=== PATIENT | female | born 1930 | race Caucasian/White ===

== ENCOUNTER 2021-06-04 10:17 | Emergency (ER) | payer MEDICARE ==
[~2021-06-04] VITALS: Ht 157.5 cm; Wt 63.5 kg
[~2021-06-04 10:17] MED LIST: AMLODIPINE BES2.5 MG PO; AMLODIPINE BESYL5 MG PO; CORDARONE200 MG PO; GLIMEPIRIDE2 MG PO; KCL20TCR PO; LISINOPRIL40 MG PO; MILK OF MA400 MG/5 M PO; MTP50T PO; NORVASC5 MG PO; POTASSIUM CHLO20 ME1 PO; PRAVASTATIN SOD80 MG PO; TOPROL XL25 MG PO; WARFARIN SODIUM5 MG PO
[2021-06-04] MEDS ORDERED: CEFUROXIME500 MG PO (11:41)
[2021-06-04] MEDS ORDERED: PHENAZOPYRIDIN200 MG PO (11:42)
== END 2021-06-04 12:00 | disposition home or self-care (01) ==
LOC: FSED 11:00 → ER 12:00
DX: I48.92 Unspecified atrial flutter (principal); E11.9 Type 2 diabetes mellitus without complications; I10 Essential (primary) hypertension; N39.0 Urinary tract infection, site not specified; E78.5 Hyperlipidemia, unspecified; Z95.0 Presence of cardiac pacemaker
CPT/HCPCS: 81003; 87086; 87186; 99282

== ENCOUNTER 2021-08-16 12:26 | Emergency (ER) | payer MEDICARE ==
[~2021-08-16] VITALS: Ht 157.5 cm; Wt 63.6 kg
[~2021-08-16 12:26] MED LIST changes: +CEFUROXIME500 MG PO; +PHENAZOPYRIDIN200 MG PO
[2021-08-16] MEDS ORDERED: DIOVAN HCT 1601 EACH (13:21)
[2021-08-16] MEDS ORDERED: NEURONTIN100 MG PO (13:21)
[2021-08-16] MEDS ORDERED: VITAMIN D350 MCG (13:21)
[2021-08-16] MEDS ORDERED: AMIODARONE HCL200 MG PO (13:21)
[2021-08-16] MEDS ORDERED: WARFARIN SODIUM5 MG PO (13:21)
[2021-08-16] MEDS ORDERED: VITAMIN C1000 MG PO (13:21)
[2021-08-16] MEDS ORDERED: WARFARIN SODIU2.5 MG PO (13:21)
[2021-08-16] MEDS ORDERED: VITAMIN B COMP1 EACH (13:21)
[2021-08-16] MEDS ORDERED: METOPROLOL TAR100 MG PO (13:21)
[2021-08-16] MEDS ORDERED: AMLODIPINE BESYL5 MG PO (13:54)
[2021-08-16] MEDS ORDERED: CLONIDINE HCL 0.1 MG TAB PO ONE (14:00)
== END 2021-08-16 14:18 | disposition home or self-care (01) ==
LOC: FSED 12:31
DX: I10 Essential (primary) hypertension (principal); E11.9 Type 2 diabetes mellitus without complications; E78.5 Hyperlipidemia, unspecified; I48.91 Unspecified atrial fibrillation; I25.10 Atherosclerotic heart disease of native coronary artery without angina pectoris; E78.00 Pure hypercholesterolemia, unspecified; Z95.810 Presence of automatic (implantable) cardiac defibrillator; R94.31 Abnormal electrocardiogram [ECG] [EKG]
CPT/HCPCS: 93005; 99283